=== PATIENT | male | born 1945 | race Caucasian/White ===

== ENCOUNTER 2018-12-09 10:18 | Outpatient (CLI) | payer MEDICARE ==
[2018-12-09 11:13] LABS: PARTIAL THROMBOPLASTIN TIME 25 SECONDS (22-32)
[2018-12-09 11:14] LABS: ALANINE AMINOTRANSFERASE 26 U/L (12-78); ALBUMIN 3.7 G/DL (3.4-5.0); ALBUMIN/GLOBULIN RATIO 1.1 (1.1-1.5); ALKALINE PHOSPHATASE 57 IU/L (46-116); ANION GAP 4 (8-16); ASPARTATE AMINO TRANSFERASE 24 U/L (10-37); BILIRUBIN,TOTAL 0.3 MG/DL (0.1-1.0); BLOOD UREA NITROGEN 35 MG/DL (7-18); BUN/CREATININE RATIO 41.2 (5.4-32.0); CHLORIDE 105 MMOL/L (99-107); CREATININE 0.85 MG/DL (0.60-1.10); GLUCOSE 89 MG/DL (70-104); POTASSIUM 4.6 MMOL/L (3.5-5.1); SODIUM 137 MMOL/L (135-145); TOTAL CARBON DIOXIDE 27.6 MMOL/L (24-32); eGFR 88 ML/MIN
[2018-12-10 09:33] LABS: BASOPHILS # (AUTO) 0.1 X10'3 (0-0.2); BASOPHILS % (AUTO) 0.8 % (0-1); EOSINOPHILS # (AUTO) 0.2 X10'3 (0-0.9); EOSINOPHILS % (AUTO) 2.5 % (0-6); HEMATOCRIT 41.7 % (42.0-52.0); HEMOGLOBIN 14.2 g/dl (14.0-17.9); LYMPHOCYTES # (AUTO) 2.7 X10'3 (1.1-4.8); LYMPHOCYTES % (AUTO) 36.1 % (21-51); MEAN CORPUSCULAR HEMOGLOBIN 32.9 PG (27.0-31.0); MEAN CORPUSCULAR HGB CONC 34.1 g/dL (33.0-36.5); MEAN CORPUSCULAR VOLUME 96.7 FL (78-98); MEAN PLATELET VOLUME 7.8 FL (7.4-10.4); MONOCYTES # (AUTO) 0.6 X10'3 (0-0.9); MONOCYTES % (AUTO) 7.7 % (2-12); NEUTROPHILS % (AUTO) 52.9 % (42-75); PLATELET COUNT 236 X10'3 (140-440); RED BLOOD COUNT 4.31 X10'6 (4.70-6.10); RED CELL DISTRIBUTION WIDTH 13.2 % (11.5-14.5); WHITE BLOOD COUNT 7.5 X10'3 (4.5-11.0)
== END 2018-12-09 23:59 | disposition home or self-care (01) ==
LOC: LAB 10:18
PROVIDERS: ATTEND Otolaryngology
DX: D69.1 Qualitative platelet defects (principal); Z87.891 Personal history of nicotine dependence
CPT/HCPCS: 36415; 80053; 85025; 85576; 85610; 85730

== ENCOUNTER 2025-01-28 08:01 | Emergency (ER) | payer MEDICARE ==
[~2025-01-28] VITALS: Ht 177.8 cm; Wt 88.6 kg
[2025-01-28 08:03] VITALS: BP 176/105; PULSE 61; RESP 16; TEMP 98.5; O2SAT 99
--- NOTE | 2025-01-28 08:46 | RADIOLOGY REPORT ---
DI OS CALCIS (HEEL), HISTORY: pos foreign body TECHNICAL DATA: Lateral and Young-Beath views were obtained of the right calcaneus. COMPARISON: None FINDINGS: No fracture or focal bone abnormality is demonstrated. The regional joints are maintained. There is a 7 mm radiopaque linear foreign body within the mid plantar soft tissues. Punctate radiopaq ue within the posterior calcaneal soft tissues. IMPRESSION: 1. 7mm superficial foreign body within the mid- plantar soft tissue 2. Punctate radiopaque foreign body in the posterior calcaneal soft tissue
--- NOTE | 2025-01-28 10:13 | Physician Documentation ---
History of Present Illness ~ Chief Complaint: Foot pain Stated Complaint: L FOOT PAIN Time Seen by MD: 09:19 OK to notify your PCP?: Yes Primary Medical Doctor: jossy Source: patient Mode of Arrival: POV Exam Limitations: no limitations HPI 79-year-old male with chief complaint painful area on the bottom of his left foot which started about three days ago. 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 No pre arrival treatment. States the pain has been getting progressively worse which is why he decided to come in today. Last tetanus has been within the last five years. Patient denies diabetes. Tetanus witin 5 years: Yes Medication Reconciliation Allergies: Coded Allergies: No Known Allergies (Unverified , 01/28/25) No Active Prescriptions or Reported Meds Past Medical History Past Medical History: No Pertinent History Review of Systems All Other Systems at this time: Reviewed and Negative Physical Exam Vital Signs: Temperature: 98.5, Source: Temporal, Heart Rate: 61, Respiratory Rate: 16, BP: 176/105, Pulse Oximetry: 99, Weight: 88.640 Oxygen Flow Rate: 0 Physical Exam General Appearance: Alert, WD/WN. NAD. HEENT: NCAT, PERRL, EOMI. Neck: Supple, trachea midline. Cardiovascular: RRR. No m/r/g. Lungs: CTAB. Breathing unlabored Extremities: Normal inspection. No edema. Skin: Warm/dry, normal color. Left dorsal surface of foot proximal heel area there is a area that is tender to palpation with a callus and in the center of the callus there appears to be a dark visible piece of a foreign body about 1 mm in width. No erythema areas tender to palpation. Neurological: Alert and oriented x4, normal gait. Psychiatric: Affect congruent with mood. Procedures Procedures I used Betadine to clean the areas surrounding the foreign body I then used an 18 gauge needle to carefully cut back the callus from around the dark foreign body that I was able to see. I then used forceps to grasped the dark piece that was visible at the skin surface and applied gentle traction and removed approximately 1 cm foreign body that appeared to be a piece of metal. Pt tolerated well. Progress Progress Note Initial three-view x-ray showed foreign body and left heel Postprocedure the x-ray showed that the foreign body has been removed Results/Orders Results/Orders Orders - OZ LEY Os Calcis (Heel) (01/28/25 09:55) Completed Orders - ZO LEY Os Calcis (Heel) (01/28/25 09:55) Vital Signs 01/28/25 08:03 Temp 98.5 Pulse 61 Resp 16 B/P (MAP) 176/105 Pulse Ox 99 O2 Flow Rate 0 Medical Decision Making Foot Diff Dx:Considerations: Include: Abrasion, Arthritis, Cellulitis, Contusion, Dislocation, DJD, Fracture-metatarsal, Fracture-phalynx, Fracture- tarsal, Gout, Hematoma, Ingrown toenail, Laceration, Malunion, Neurovascular injury, Open fracture, Paronychia, Puncture, Rheumatoid, Sprain, Septic, Subungual hematoma, Ulcer, Other Departure Time of Disposition: 10:11 Disposition: 01 HOME / SELF CARE / HOMELESS Impression: Primary Impression: Foreign body in foot, left Qualified Codes: S90.852A - Superficial foreign body, left foot, initial encounter Additional Impressions: Foot pain Qualified Codes: M79.672 - Pain in left foot Hypertension Qualified Codes: I10 - Essential (primary) hypertension Condition: Stable Discharge Instructions: General Discharge Instructions Additional Instructions: Monitor for signs and symptoms of infection I have low suspicion that this will get infected since we got the foreign body out within a reasonable period of time from when you felt the pain however if you experience increasing pain return to the ER immediately. Make sure to monitor the area and inspected to make sure it is not getting red, swollen and that it is healing. Patient requesting bp medication refill benazepril at time of discharge stating he has been out for a week. Denied cardiac symptoms. Referrals: NO PRIMARY CARE PROVIDER (PCP) Prescriptions Benazepril Hcl* (Lotensin*) 40 Mg Tablet 1 TAB PO DAILY for 30 Days, #30 TAB Prov: OZ LEY 01/28/25 Education Educated: Patient Educated regarding: diagnosis, treatment, need for follow up Signature Scribe Signature: x Attestation: OZ Jose Jan 28, 2025 10:13
[2025-01-28] MEDS ORDERED: BENA40TA73 PO (10:31)
--- NOTE | 2025-01-28 10:53 | RADIOLOGY REPORT ---
DI OS CALCIS (HEEL), HISTORY: POST FOREIGN BODY REMOVAL TECHNICAL DATA: Lateral and Young-Beath views were obtained of the right calcaneus. COMPARISON: DI OS CALCIS (HEEL) on DOS: 01/28/25 FINDINGS: No fracture or focal bone abnormality is demonstrated. The regional joints are maintained. Soft tissu es are within normal limits. IMPRESSION: The foreign body from the plantar soft tissue is removed.
== END 2025-01-28 10:33 | disposition home or self-care (01) ==
LOC: ER 08:02
DX: S90.852A Superficial foreign body, left foot, initial encounter (principal); I10 Essential (primary) hypertension; W45.8XXA Other foreign body or object entering through skin, initial encounter; Y93.89 Activity, other specified; Y92.89 Other specified places as the place of occurrence of the external cause; Y99.8 Other external cause status
CPT/HCPCS: 73650; 99284; A6402; 10120; 99285; A6449